=== PATIENT | male | born 1985 | race Caucasian/White ===

== ENCOUNTER 2016-07-10 21:29 | Emergency (ER) | payer SELFPAY ==
--- NOTE | 2016-07-10 21:49 | UC ---
Throat Pain/Nasal Ruy HPI - HPI Summary HPI Summary: L-sided ST starting 2 weeks ago. Was fairly mild until the last 4-5 days when symptoms "really blew up." Painful swallowing with a lump on the L neck. Has also been feeling very chilled lately. Has nasal congestion and cough, but they feel like his normal effects from smoking. - History of Current Complaint Chief Complaint: UCRespiratory Stated Complaint: SORE THROAT Time Seen by Provider: 07/10/16 21:34 Hx Obtained From: Patient Onset/Duration: Gradual Onset, Lasting Weeks Severity: Mild Cough: None Associated Signs & Symptoms: Positive: Nasal Discharge. Negative: Hoarseness, Sinus Discomfort - Allergies/Home Medications Allergies/Adverse Reactions: Allergies Allergy/AdvReac Type Severity Reaction Status Date / Time No Known Allergies Allergy Verified 07/10/16 21:36 Home Medications: Home Medications NK [No Home Medications Reported] 07/10/16 [History Confirmed 07/10/16] PMH/Surg Hx/FS Hx/Imm Hx Endocrine History Of: Denies: Diabetes, Thyroid Disease Cardiovascular History Of: Denies: Cardiac Disorders, Hypertension Respiratory History Of: Reports: Asthma - as a child Denies: COPD GI/ History Of: Denies: Ulcer - Surgical History Surgical History: Yes Surgery Procedure, Year, and Place: fatty tumor removed. CHOLECYSTECTOMY - Family History Known Family History: Positive: Cardiac Disease, Diabetes, Other - cancer - Social History Alcohol Use: Rare Substance Use Type: None Smoking Status (MU): Light Every Day Tobacco Smoker Type: Cigars Amount Used/How Often: 2-3 CIG/DAY Length of Time of Smoking/Using Tobacco: 12 yrs Have You Smoked in the Last Year: Yes When Did the Patient Quit Smoking/Using Tobacco: 3 MO AGO Household Exposure Type: Cigarettes - Immunization History Most Recent Influenza Vaccination: fall 2015 Review of Systems Constitutional: Chills Skin: Negative Eyes: Negative ENT: Sore Throat Respiratory: Negative Cardiovascular: Negative Gastrointestinal: Negative Genitourinary: Negative Motor: Negative Neurovascular: Negative Musculoskeletal: Negative Neurological: Negative Psychological: Negative All Other Systems Reviewed And Are Negative: Yes Physical Exam Triage Information Reviewed: Yes Appearance: Well-Appearing, No Pain Distress, Well-Nourished Vital Signs: Initial Vital Signs Temp 99.4 F 07/10/16 21:32 Pulse 87 07/10/16 21:32 Resp 18 07/10/16 21:32 BP 151/91 07/10/16 21:32 Pulse Ox 98 07/10/16 21:32 Vital Signs Reviewed: Yes Eye Exam: Normal Eyes: Positive: Conjunctiva Clear ENT: Positive: Hearing grossly normal, Pharyngeal erythema, TMs normal. Negative: Nasal drainage Dental Exam: Normal Neck: Positive: Enlarged Nodes @ - L anterior cervical Respiratory Exam: Normal Respiratory: Positive: Chest non-tender, Lungs clear, Normal breath sounds, No respiratory distress, No accessory muscle use Cardiovascular Exam: Normal Cardiovascular: Positive: RRR, No Murmur Musculoskeletal Exam: Normal Musculoskeletal: Positive: Strength Intact, ROM Intact Neurological Exam: Normal Neurological: Positive: Alert Psychological Exam: Normal Skin Exam: Normal Throat Pain/Nasal Course/Dx - Differential Dx/Diagnosis Provider Diagnoses: tonsillitis. elevated blood pressure due to pain Discharge - Discharge Plan Condition: Stable Disposition: HOME Patient Education Materials: Tonsillitis (ED) Referrals: No Primary Care Phys,NOPCP [Primary Care Provider] - Additional Instructions: Your strep test is negative. Labwork pending. If your symptoms do not show improvement within the next week, please return for a recheck.
[2016-07-10 22:18] VITALS: BP 156/92
[2016-07-11 10:24] LABS: EBV Response YES
[2016-07-11 10:37] LABS: Hematocrit 50 % (42-52); Hemoglobin 16.7 g/dl (14.0-18.0); Mean Corpuscular HGB Conc 34 g/dl (31-36); Mean Corpuscular Hemoglobin 30 pg (27-31); Mean Corpuscular Volume 91 fL (80-94); Mean Platelet Volume 9 um3 (7.4-10.4); Red Blood Count 5.48 10^6/ul (4.0-5.4); Red Cell Distribution Width 13 % (10.5-15); White Blood Count 11.9 10^3/ul (3.5-10.8)
[2016-07-11 10:43] LABS: Manual Entry Verification GRE0060; Mono Internal Control QC Line Present
[2016-07-11 11:22] LABS: Albumin 4.8 g/dL (3.2-5.2); BUN/Creatinine Ratio 14.3 (8-20); Calcium 9.8 mg/dL (8.6-10.3); EGFR African American 116.3 (>60); EGFR Non-African American 90.4 (>60); Globulin 2.3 g/dL (2-4); Potassium 4.3 mmol/L (3.5-5.0); Total Bilirubin 0.6 mg/dL (0.2-1.0); Total Protein 7.1 g/dL (6.4-8.9)
[2016-07-12 15:53] LABS: EBV Capsid Ag IgG Ab Positive (Negative); EBV Capsid Ag IgM Ab Negative (Negative)
== END 2016-07-10 22:15 | disposition home or self-care (01) ==
LOC: UCEAST 21:29
DX: J03.90 Acute tonsillitis, unspecified (principal); R03.0 Elevated blood-pressure reading, without diagnosis of hypertension; Z90.49 Acquired absence of other specified parts of digestive tract; F17.210 Nicotine dependence, cigarettes, uncomplicated
CPT/HCPCS: 36415; 80053; 85025; 86308; 86664; 86665; 87651; 99211; G0463

== ENCOUNTER 2017-01-16 10:38 | Emergency (ER) | payer OTHER ==
[2017-01-16 11:01] VITALS: BP 140/77
[2017-01-16] MEDS ORDERED: Ondansetron ODT TAB* 4 MG PO ONE (11:26)
--- NOTE | 2017-01-16 11:38 | UC ---
FLU HPI - HPI Summary HPI Summary: 2 DAYS OF COUGH, CHEST CONGESTION, ST, BODY ACHES. WOKE UP 2 AM LAST NIGHT AND VOMITED, HAS HAD SEVERAL EPISODES OF VOMITING AND DIARRHEA. DENIES FEVER. - History of Current Complaint Chief Complaint: UCGeneralIllness Stated Complaint: COUGH VOMITING Time Seen by Provider: 01/16/17 11:19 Hx Obtained From: Patient Onset/Duration: Gradual Onset, Lasting Days, Still Present Severity Currently: Moderate Severity Initially: Moderate Pain Intensity: 7 Pain Scale Used: 0-10 Numeric Associated Signs & Symptoms: Positive: Myalgia, Cough, Sore Throat, Nasal Congestion, Vomiting, Diarrhea - Allergy/Home Medications Allergies/Adverse Reactions: Allergies Allergy/AdvReac Type Severity Reaction Status Date / Time No Known Allergies Allergy Verified 01/16/17 10:55 Home Medications: Home Medications Mucinex 2 tab PO 01/16/17 [History] PMH/Surg Hx/FS Hx/Imm Hx Respiratory History: Asthma - Surgical History Surgical History: Yes Surgery Procedure, Year, and Place: fatty tumor removed. CHOLECYSTECTOMY - Family History Known Family History: Positive: Cardiac Disease, Hypertension, Diabetes, Other - cancer - Social History Alcohol Use: Rare Substance Use Type: None Smoking Status (MU): Heavy Every Day Tobacco Smoker Type: Cigars Amount Used/How Often: 5-6 CIG/DAY Length of Time of Smoking/Using Tobacco: 12 yrs Have You Smoked in the Last Year: Yes When Did the Patient Quit Smoking/Using Tobacco: 3 MO AGO Household Exposure Type: Cigarettes - Immunization History Most Recent Influenza Vaccination: fall 2015 Review of Systems Constitutional: Fatigue ENT: Sore Throat, Nasal Discharge Respiratory: Cough Cardiovascular: Negative Musculoskeletal: Myalgia All Other Systems Reviewed And Are Negative: Yes Physical Exam Triage Information Reviewed: Yes Appearance: No Pain Distress, Well-Nourished, Ill-Appearing - MILD Vital Signs: Initial Vital Signs Temp 98.7 F 01/16/17 10:56 Pulse 86 01/16/17 10:56 Resp 16 01/16/17 10:56 BP 140/77 01/16/17 10:56 Pulse Ox 100 01/16/17 10:56 Vital Signs Reviewed: Yes Eyes: Positive: Conjunctiva Clear ENT: Positive: Hearing grossly normal, Pharynx normal, TMs normal Neck: Positive: Supple, Nontender, No Lymphadenopathy Respiratory Exam: Normal Cardiovascular Exam: Normal Abdomen Description: Positive: Soft Musculoskeletal: Positive: No Edema Neurological: Positive: Alert Psychological: Positive: Age Appropriate Behavior Skin: Negative: rashes Diagnostics - Laboratory Diagnostic Studies Completed/Ordered: RAPID FLU NEGATIVE Flu Course/Dx - Differential Dx/Diagnosis Provider Diagnoses: ACUTE VIRAL SYNDROME Discharge - Discharge Plan Condition: Stable Disposition: HOME Patient Education Materials: Viral Syndrome (ED) Forms: *Work Release Referrals: No Primary Care Phys,NOPCP [Primary Care Provider] - Additional Instructions: FLU TEST NEGATIVE. YOUR SYMPTOMS ARE LIKELY VIRALLY MEDIATED AND SHOULD RESOLVE ON THEIR OWN WITH TIME. REST, HYDRATE, OTC MEDS NEEDED. SEEK FOLLOW-UP IF YOU ARE NOT IMPROVING OVER THE NEXT 1-2 WEEKS. VIRAL SYNDROME: The physician has diagnosed a viral infection. Viruses not only cause "colds," but can cause many different symptoms including generalized aching, fever, headache, cough, diarrhea, nausea, vomiting, and fatigue. The treatment, for the most part, is simply relief of symptoms. This means that antibiotics are usually not given. Rest, fluids, pain medications and, occasionally, medication for the specific symptoms that are most bothersome will be prescribed. Contact the physician if you develop any new or unusual symptoms such as severe headache, stiff neck, high fever, chest pain, productive cough, or shortness of breath. You should be rechecked if you don't see marked improvement within seven to 10 days. CALL THE NUMBER BELOW FOR ASSISTANCE IN ESTABLISHING WITH A PCP An additional resource available to assist in finding the appropriate physician for your health care needs is the [facility] ([facility]). You may contact them by calling [phone].
== END 2017-01-16 12:32 | disposition home or self-care (01) ==
LOC: UCEAST 10:38
DX: B34.9 Viral infection, unspecified (principal); J45.909 Unspecified asthma, uncomplicated; Z90.49 Acquired absence of other specified parts of digestive tract; F17.210 Nicotine dependence, cigarettes, uncomplicated
CPT/HCPCS: 87502; 99212; A9270-GY; G0463

== ENCOUNTER 2017-05-18 12:32 | Emergency (ER) | payer SELFPAY ==
[2017-05-18 12:53] VITALS: BP 150/102
--- NOTE | 2017-05-18 13:00 | UC ---
FLU HPI - HPI Summary HPI Summary: 31M presents with flu like illness for 3 days. He admits to muscle aches. He admits to nausea, vomiting, and diarrhea. He admits to subjective fevers. He admits to productive cough. He denies any sore throat. He admits to sinus congestion. He denies any chest pain or SOB. He has no medical conditions. He denies any antibiotic usage recently. no one else is sick. he works in a [employer] shop. - History of Current Complaint Chief Complaint: UCGeneralIllness Stated Complaint: VOMITING,CHILLS,COUGH Time Seen by Provider: 05/18/17 12:54 Pain Intensity: 7 - Allergy/Home Medications Allergies/Adverse Reactions: Allergies Allergy/AdvReac Type Severity Reaction Status Date / Time No Known Allergies Allergy Verified 05/18/17 12:53 PMH/Surg Hx/FS Hx/Imm Hx Endocrine History: Other Other Endocrine History: no DM Respiratory History: Other Other Respiratory History: no COPD - Surgical History Surgical History: Yes Surgery Procedure, Year, and Place: fatty tumor removed 2004. CHOLECYSTECTOMY as a child - Family History Known Family History: Positive: Cardiac Disease, Hypertension, Diabetes, Other - cancer - Social History Alcohol Use: Rare Substance Use Type: None Smoking Status (MU): Heavy Every Day Tobacco Smoker Type: Cigars Amount Used/How Often: 5-6 CIG/DAY Length of Time of Smoking/Using Tobacco: 12 yrs Have You Smoked in the Last Year: Yes When Did the Patient Quit Smoking/Using Tobacco: 3 MO AGO Household Exposure Type: Cigarettes - Immunization History Most Recent Influenza Vaccination: fall 2015 Review of Systems Constitutional: Chills, Fatigue Respiratory: Other Gastrointestinal: Abdominal Pain, Vomiting, Diarrhea, Nausea All Other Systems Reviewed And Are Negative: Yes Physical Exam Triage Information Reviewed: Yes Appearance: Well-Appearing Vital Signs: Initial Vital Signs Temp 98.6 F 05/18/17 12:48 Pulse 84 05/18/17 12:48 Resp 18 05/18/17 12:48 BP 150/102 05/18/17 12:48 Pulse Ox 99 05/18/17 12:48 Vital Signs Reviewed: Yes Eyes: Positive: Conjunctiva Clear ENT: Positive: Normal ENT inspection, Pharynx normal, TMs normal Respiratory: Positive: Lungs clear, Normal breath sounds Cardiovascular: Positive: RRR Abdomen Description: Positive: Soft, Other: - mild diffuse tenderness Bowel Sounds: Positive: Present Musculoskeletal Exam: Normal Neurological Exam: Normal Psychological Exam: Normal Skin Exam: Normal Flu Course/Dx - Course Course Of Treatment: 31M presents with flu like illness for 3 days. He admits to muscle aches. He admits to nausea, vomiting, and diarrhea. He admits to subjective fevers. He admits to productive cough. He denies any sore throat. He admits to sinus congestion. He denies any chest pain or SOB. He has no medical conditions. He denies any antibiotic usage recently. no one else is sick. he works in a [employer] shop. on exam lungs CTA. abdomen mild diffuse tenderness. due to being out of range to treat for flu will not test for flu. with symptoms need to pull from work anyways. symptoms likely due to flu so will treat supporatively. gave referral to establish care with primary due to elevated blood pressure. patient understand and agrees with plan. - Differential Dx/Diagnosis Differential Diagnosis/HQI/PQRI: Influenza, Pneumonia, Upper Respiratory Infection Provider Diagnoses: influenza Discharge - Discharge Plan Condition: Good Disposition: HOME Prescriptions: Benzonatate CAP* [Tessalon 100 MG CAP*] 100 mg PO TID #21 cap Ondansetron ODT TAB* [Zofran 4 MG Odt TAB*] 4 mg PO Q6H PRN #20 tab.odt PRN Reason: Nausea Patient Education Materials: Influenza (ED) Forms: *Work Release Referrals: [facility] PHYSICIAN REFERRAL [Outside] Additional Instructions: Take Tylenol and ibuprofen for muscle aches and fever every 6 hours Use Zofran every 6 hours for nausea as needed Take tessalon three times a day for cough Saline rinse can be used multiple times a day for nasal congestion Use humidifier in room or place bowls of warm water around room for cough Try to drink fluids every hour and eat a small snack every 3 hours Establish care with primary, need to follow up as blood pressure was elevated this visit Return to ED if develop any new or worsening symptoms
== END 2017-05-18 13:10 | disposition home or self-care (01) ==
LOC: UCEAST 12:32
DX: J11.1 Influenza due to unidentified influenza virus with other respiratory manifestations (principal); Z87.891 Personal history of nicotine dependence
CPT/HCPCS: 99212; G0463

== ENCOUNTER 2017-09-11 14:59 | Emergency (ER) | payer SELFPAY ==
[2017-09-11 15:10] VITALS: BP 169/102
--- NOTE | 2017-09-11 18:51 | UC ---
Ramírez Agarwal Jade, scribed for Derrick Latham MD on 09/11/17 at 1638 . Abdominal Pain Male HPI - HPI Summary HPI Summary: Pt is a 31 y/o male who [place] [facility] [place]/o intermittent abdominal pain. Pt states he has had bad abdominal pain over his RLQ for several days. The apin is intermittent, and he is sometimes bent over in pain. Last night he felt under the weather so he took some sinus medicine. When he woke up he couldnt breathe because he was so congested. Pt also c/o a scratchy throat, sinus pain, sinus congestion with green mucus, and some diarrhea. He states he normally has a dry cough due to smoking. Eating and drinking both make the abdominal pain worse. Pt denies any bloody or black stool, testicular pain, scrotum pain, or abnormal urination. PSHx cholecystectomy. - History of Current Complaint Chief Complaint: UCAbdominalPain Stated Complaint: ABD PAIN,ST,COUGH,CONGESTION Time Seen by Provider: 09/11/17 16:05 Hx Obtained From: Patient Onset/Duration: Gradual Onset - 3 days ago Timing: Intermittent Episodes Lasting: - About 20 minutes Severity Currently: Moderate Pain Intensity: 3 Pain Scale Used: 0-10 Numeric Location: Discrete At: RLQ Aggravating Factor(s): Food Associated Signs And Symptoms: Positive: Decreased Appetite. Negative: Blood in Stool - Allergies/Home Medications Allergies/Adverse Reactions: Allergies Allergy/AdvReac Type Severity Reaction Status Date / Time No Known Allergies Allergy Verified 09/11/17 15:10 Home Medications: Home Medications Sinus Med* 09/11/17 [History] PMH/Surg Hx/FS Hx/Imm Hx Endocrine History: Other - NEGATIVE: diabetes Other Endocrine History: . Respiratory History: Asthma - Surgical History Surgical History: Yes Surgery Procedure, Year, and Place: fatty tumor removed 2004. CHOLECYSTECTOMY as a child - Family History Known Family History: Positive: Cardiac Disease, Hypertension, Diabetes, Other - cancer, GERD - Social History Alcohol Use: None Substance Use Type: None Smoking Status (MU): Current Every Day Smoker Type: Cigarettes Amount Used/How Often: 1/2 PPD Length of Time of Smoking/Using Tobacco: 12 yrs Have You Smoked in the Last Year: Yes When Did the Patient Quit Smoking/Using Tobacco: 3 MO AGO Household Exposure Type: Cigarettes - Immunization History Most Recent Influenza Vaccination: fall 2015 Review of Systems ENT: Sore Throat, Nasal Discharge - Green mucus, Sinus Congestion, Sinus Pain/ Tenderness Gastrointestinal: Abdominal Pain - RLQ - intermittent, Diarrhea, Other - NEGATIVE: black or bloody stool Genitourinary: Negative All Other Systems Reviewed And Are Negative: Yes Physical Exam - Summary Physical Exam Summary: General: well-appearing, no pain distress Skin: warm, color reflects adequate perfusion, dry Head: normal Eyes: EOMI, MARYANN ENT: Rhinorrhea Neck: supple, nontender Respiratory: CTA, breath sounds present Cardiovascular: RRR Abdomen: soft, mild tenderness over right side of abdomen. No rebound. Bowel: present Musculoskeletal: normal, strength/ROM intact Neurological: sensory/motor intact, A&O x3 Psychological: affect/mood appropriate Triage Information Reviewed: Yes Vital Signs: Initial Vital Signs Temp 98.8 F 09/11/17 15:07 Pulse 91 09/11/17 15:07 Resp 18 09/11/17 15:07 BP 169/102 09/11/17 15:07 Pulse Ox 99 09/11/17 15:07 Vital Signs Reviewed: Yes Abd Pain Male Course/Dx - Course Course Of Treatment: SX TREATMENT FOR URI SX. NO C/O OF ABDOMINAL PAIN IN CLINIC BUT, MILDY TENDER WITHOUT REBOUND ON EXAM. NO FEVER. PAIN INTERMITTENT. APPENDICITIS UNLIKELY BUT, STILL POSSIBLE. I DISCUSSED THIS WITH THE PATIENT AND RECOMMENDED EVALUATION OF THE ABD PAIN IN THE ED. - Differential Dx/Clinical Impression Provider Diagnoses: URI. INTERMITTENT RIGHT SIDED ABDOMINAL PAIN Discharge - Sign-Out/Discharge Documenting (check all that apply): Discharge/Admit/Transfer - Discharge - Discharge Plan Condition: Stable Disposition: HOME Patient Education Materials: Upper Respiratory Infection (ED), Acute Abdominal Pain (ED) Forms: *Work Release Referrals: [facility] PHYSICIAN REFERRAL [Outside] Additional Instructions: GO TO THE EMERGENCY DEPARTMENT FOR FURTHER EVALUATION OF YOUR ABDOMINAL PAIN. TRY OVER THE COUNTER TREATMENT OF YOUR UPPER RESPIRATORY TRACT INFECTION/SINUS CONGESTION SYMPTOMS. FOLLOW UP WITH YOUR DOCTOR IF NOT COMPLETELY IMPROVED. GET RECHECKED FOR ANY WORSENING OF YOUR CONDITION OR QUESTIONS OR CONCERNS. - Billing Disposition and Condition Condition: STABLE Disposition: Home The documentation as recorded by the Ramírez sun Jade accurately reflects the service I personally performed and the decisions made by me, Derrick Latham MD.
== END 2017-09-11 16:35 | disposition home or self-care (01) ==
LOC: UCEAST 14:59
DX: N39.0 Urinary tract infection, site not specified (principal); R10.31 Right lower quadrant pain; R07.0 Pain in throat; R09.81 Nasal congestion; R19.7 Diarrhea, unspecified; J45.909 Unspecified asthma, uncomplicated; F17.210 Nicotine dependence, cigarettes, uncomplicated; Z82.49 Family history of ischemic heart disease and other diseases of the circulatory system; Z83.3 Family history of diabetes mellitus; Z83.79 Family history of other diseases of the digestive system; Z80.9 Family history of malignant neoplasm, unspecified
CPT/HCPCS: 99212; G0463

== ENCOUNTER 2017-10-28 09:27 | Emergency (ER) | payer BC ==
[2017-10-28 09:39] VITALS: BP 143/94
--- NOTE | 2017-10-28 09:59 | UC ---
Throat Pain/Nasal Ruy HPI - HPI Summary HPI Summary: The patient is a 32-year-old male with a less than 24-hour history of sore throat. Had myalgias and has felt feverish. - History of Current Complaint Chief Complaint: UCRespiratory Stated Complaint: SORE THROAT Time Seen by Provider: 10/28/17 09:40 Hx Obtained From: Patient Onset/Duration: Gradual Onset, Lasting Hours Severity: Severe Pain Intensity: 9 Pain Scale Used: 0-10 Numeric Cough: None Associated Signs & Symptoms: Positive: Fever - Epiglottits Risk Factors Epiglottis Risk Factors: Negative - Allergies/Home Medications Allergies/Adverse Reactions: Allergies Allergy/AdvReac Type Severity Reaction Status Date / Time No Known Allergies Allergy Verified 10/28/17 09:39 Home Medications: Home Medications Mv-Mn/C/Glutamin/Lysin/[id number] [Airborne Lozenge] 1 tab PO ONCE PRN 10/28/17 [ History Confirmed 10/28/17] PMH/Surg Hx/FS Hx/Imm Hx Previously Healthy: Yes - Surgical History Surgical History: Yes Surgery Procedure, Year, and Place: fatty tumor removed 2004. CHOLECYSTECTOMY as a child - Family History Known Family History: Positive: Cardiac Disease, Hypertension, Diabetes, Other - cancer, GERD - Social History Alcohol Use: None Substance Use Type: None Smoking Status (MU): Current Every Day Smoker Type: Cigarettes Amount Used/How Often: 5-6 cig/day Length of Time of Smoking/Using Tobacco: 12 yrs Have You Smoked in the Last Year: Yes When Did the Patient Quit Smoking/Using Tobacco: 3 MO AGO Household Exposure Type: Cigarettes - Immunization History Most Recent Influenza Vaccination: fall 2015 Review of Systems Constitutional: Fever Skin: Negative Eyes: Negative ENT: Sore Throat Respiratory: Negative Cardiovascular: Negative Gastrointestinal: Negative Genitourinary: Negative Motor: Negative Neurovascular: Negative Musculoskeletal: Myalgia Neurological: Negative Psychological: Negative Is Patient Immunocompromised?: No All Other Systems Reviewed And Are Negative: Yes Physical Exam Triage Information Reviewed: Yes Appearance: Well-Appearing, No Pain Distress, Well-Nourished Vital Signs: Initial Vital Signs Temp 98.7 F 10/28/17 09:35 Pulse 110 10/28/17 09:35 Resp 18 10/28/17 09:35 BP 143/94 10/28/17 09:35 Pulse Ox 97 10/28/17 09:35 Vital Signs Reviewed: Yes Eyes: Positive: Conjunctiva Clear ENT: Positive: Hearing grossly normal, Pharyngeal erythema, Tonsillar swelling, Tonsillar exudate, Uvula midline Neck: Positive: Supple, Nontender, Enlarged Nodes @ - ant cervical Respiratory: Positive: Lungs clear, Normal breath sounds, No respiratory distress Cardiovascular: Positive: RRR, No Murmur Musculoskeletal: Positive: ROM Intact, No Edema Neurological: Positive: Alert Psychological Exam: Normal Skin Exam: Normal Diagnostics - Laboratory Diagnostic Studies Completed/Ordered: strep (+) Throat Pain/Nasal Course/Dx - Differential Dx/Diagnosis Provider Diagnoses: strep throat Discharge - Sign-Out/Discharge Documenting (check all that apply): Patient Departure - Discharge Plan Condition: Stable Disposition: HOME Prescriptions: Amoxicillin PO (*) [Amoxicillin 875 MG (*)] 875 mg PO BID #20 tab Ibuprofen TAB* [Motrin TAB*] 600 mg PO Q6H PRN #40 tab PRN Reason: Pain Patient Education Materials: Strep Throat (ED) Forms: *Work Release Referrals: No Primary Care Phys,NOPCP [Primary Care Provider] - - Billing Disposition and Condition Condition: STABLE Disposition: Home
== END 2017-10-28 10:03 | disposition home or self-care (01) ==
LOC: UCEAST 09:27
DX: J02.0 Streptococcal pharyngitis (principal); Z82.49 Family history of ischemic heart disease and other diseases of the circulatory system; Z83.3 Family history of diabetes mellitus; Z80.9 Family history of malignant neoplasm, unspecified; Z83.79 Family history of other diseases of the digestive system; F17.210 Nicotine dependence, cigarettes, uncomplicated
CPT/HCPCS: 87651; 99212; G0463

== ENCOUNTER 2017-11-27 17:30 | Emergency (ER) | payer BC, OTHER ==
[2017-11-27 17:45] VITALS: BP 143/100
--- NOTE | 2017-11-27 17:54 | UC ---
Knee Pain HPI - HPI Summary HPI Summary: left knee pain---began today when he made a sideways movement while playing basketball leaving his foot planted firmly - History of Current Complaint Chief Complaint: UCLowerExtremity Stated Complaint: KNEE INJURY WC Time Seen by Provider: 11/27/17 17:48 Hx Obtained From: Patient Onset/Duration: Sudden Onset, Lasting Hours Location Of Injury: left knee Pain Intensity: 9 Pain Scale Used: 0-10 Numeric Character: Aching, Throbbing Aggravating Factor(s): Movement, Weight Bearing Alleviating Factor(s): Rest, Position Associated Signs And Symptoms: Positive: Swelling Able to Bear Weight: Yes - with pain - Allergies/Home Medications Allergies/Adverse Reactions: Allergies Allergy/AdvReac Type Severity Reaction Status Date / Time No Known Allergies Allergy Verified 11/27/17 17:45 PMH/Surg Hx/FS Hx/Imm Hx Previously Healthy: Yes - Surgical History Surgical History: Yes Surgery Procedure, Year, and Place: fatty tumor removed 2004. CHOLECYSTECTOMY as a child - Family History Known Family History: Positive: Cardiac Disease, Hypertension, Diabetes, Other - cancer, GERD - Social History Occupation: Employed Full-time Lives: With Family Alcohol Use: None Substance Use Type: None Smoking Status (MU): Light Every Day Tobacco Smoker Type: Cigarettes Amount Used/How Often: 5-6 cig/day Length of Time of Smoking/Using Tobacco: 12 yrs Have You Smoked in the Last Year: Yes When Did the Patient Quit Smoking/Using Tobacco: 3 MO AGO Household Exposure Type: Cigarettes - Immunization History Most Recent Influenza Vaccination: fall 2015 Review of Systems Constitutional: Negative Skin: Negative Eyes: Negative ENT: Negative Respiratory: Negative Cardiovascular: Negative Gastrointestinal: Negative Genitourinary: Negative Motor: Negative Neurovascular: Negative Musculoskeletal: Arthralgia - left knee Neurological: Negative Psychological: Negative Is Patient Immunocompromised?: No All Other Systems Reviewed And Are Negative: Yes Physical Exam Triage Information Reviewed: Yes Appearance: Well-Appearing, No Pain Distress, Well-Nourished Vital Signs: Initial Vital Signs Temp 98.7 F 11/27/17 17:40 Pulse 97 11/27/17 17:40 Resp 20 11/27/17 17:40 BP 143/100 11/27/17 17:40 Pulse Ox 97 11/27/17 17:40 Vital Signs Reviewed: Yes Eye Exam: Normal Eyes: Positive: Conjunctiva Clear ENT Exam: Normal ENT: Positive: Normal ENT inspection, Hearing grossly normal. Negative: Trismus , Muffled voice, Hoarse voice Dental Exam: Normal Neck exam: Normal Neck: Positive: Supple, Nontender, No Lymphadenopathy Respiratory Exam: Normal Respiratory: Positive: Chest non-tender, No respiratory distress, No accessory muscle use Cardiovascular Exam: Normal Cardiovascular: Positive: RRR, Pulses Normal, Brisk Capillary Refill Musculoskeletal Exam: Normal, Other Musculoskeletal: Positive: ROM Intact - passive, Strength Limited @ - left knee , ROM Limited @ - active limited by pain, Edema @ Neurological Exam: Normal Neurological: Positive: Alert, Muscle Tone Normal Psychological Exam: Normal Skin Exam: Normal Diagnostics - Radiology No standard instances Xray Interpretation: No Acute Changes Radiology Interpretation Completed By: ED Physician, Radiologist - Patient Name : LIZZY MAHMOOD Medical Record# : [id number] Ordering Physician: Meagan Jaimes NP Acct.#: [id number] : 1985 Age: 32 Sex: M Location: [facility] Exam Date: 11/27 ADM Status: REG ER Order Information: KNEE LEFT 4+ VWS Accession Number: [id number] CPT: 05115 INDICATION: Left knee pain after twisting injury the previous day COMPARISON: None TECHNIQUE: 4 view radiograph of the left knee. FINDINGS: The visualized bones are well-corticated and properly aligned. The joint spaces are properly maintained. There is no radiographic evidence of joint effusion. There is no acute fracture, dislocation or other focal bony abnormality. IMPRESSION: Normal knee radiograph as described above. If the patient's symptoms persist, follow-up imaging is recommended. <Electronically signed by Héctor Young MD in OV> 11/27/171801 Dictated By: Héctor Young MD Dictated Date/Time: 11/27/171801 Transcribed Date/Time: 11/27/171801 Copy to: CC:Meagan Jaimes NP; [place] MD; No Primary Care Phys,NOPCP Imaging - [facility] [place] [id number] [place] [id number] ph ([phone]) ph ([phone]) ph ([phone]) This report is only to be considered final once signed by the Provider(s) as displayed in the "<Electronically Signed by >" field (s). Absence of a signature indicates the report is in a draft status and still needs to be finalized. In the event this document was created by someone other than the signing Provider, the individual initiating the document will be listed in the "Entered by:" or "Dictated by:" jaimes. 1 of 1 Knee Pain Course/Dx - Course Course Of Treatment: knee imm., pain med, RICE, follow with orthopedic MD - Differential Dx/Diagnosis Provider Diagnoses: Left knee pain, nicotine dependant Discharge - Sign-Out/Discharge Documenting (check all that apply): Post-Discharge Follow Up All imaging exams completed and their final reports reviewed: Yes - Discharge Plan Condition: Stable Disposition: HOME Prescriptions: Hydrocodone/Acetaminophen [Hydrocodone-Acetamin 5-325 mg] 1 each PO QID PRN #12 tablet MDD 4 PRN Reason: pain Patient Education Materials: Knee Pain (ED), Hypertension (ED) Forms: *Work Release Referrals: [facility] [Outside] - 1 Week (bp recheck ) Andrzej Carbajal MD [Medical Doctor] - 4 Days - Billing Disposition and Condition Condition: STABLE Disposition: Home
--- NOTE | 2017-11-27 18:06 | RAD ---
INDICATION: Left knee pain after twisting injury the previous day COMPARISON: None TECHNIQUE: 4 view radiograph of the left knee. FINDINGS: The visualized bones are well-corticated and properly aligned. The joint spaces are properly maintained. There is no radiographic evidence of joint effusion. There is no acute fracture, dislocation or other focal bony abnormality. IMPRESSION: Normal knee radiograph as described above. If the patient's symptoms persist, follow-up imaging is recommended.
== END 2017-11-27 18:32 | disposition home or self-care (01) ==
LOC: UCEAST 17:30
DX: M25.562 Pain in left knee (principal); F17.210 Nicotine dependence, cigarettes, uncomplicated
CPT/HCPCS: 99212; G0463

== ENCOUNTER 2018-06-04 08:54 | Emergency (ER) | payer BC, OTHER ==
[2018-06-04 10:36] LABS: Influenza A Molecular NEGATIVE (Negative); Influenza B Molecular NEGATIVE (Negative)
[2018-06-04 11:17] VITALS: BP 141/92
--- NOTE | 2018-06-04 11:18 | UC ---
Respiratory Complaint HPI - HPI Summary HPI Summary: 3 DAYS OF COUGH, CONGESTION, FATIGUE. NO FEVER, N/V. - History of Current Complaint Chief Complaint: UCGeneralIllness Stated Complaint: FLU LIKE SYSM Time Seen by Provider: 06/04/18 10:37 Hx Obtained From: Patient Onset/Duration: Gradual Onset, Lasting Days, Still Present Timing: Constant Severity Initially: Moderate Severity Currently: Moderate Pain Intensity: 8 Pain Scale Used: 0-10 Numeric Character: Cough: Nonproductive Aggravating Factors: Nothing Alleviating Factors: Nothing Associated Signs And Symptoms: Positive: URI, Nasal Congestion. Negative: Dyspnea, Fever, Wheezing - Allergies/Home Medications Allergies/Adverse Reactions: Allergies Allergy/AdvReac Type Severity Reaction Status Date / Time No Known Allergies Allergy Verified 06/04/18 09:11 Home Medications: Home Medications NK [No Home Medications Reported] 06/04/18 [History Confirmed 06/04/18] PMH/Surg Hx/FS Hx/Imm Hx Previously Healthy: Yes - Surgical History Surgical History: Yes Surgery Procedure, Year, and Place: fatty tumor removed 2004. CHOLECYSTECTOMY as a child - Family History Known Family History: Positive: Cardiac Disease, Hypertension, Diabetes, Other - cancer, GERD - Social History Alcohol Use: None Substance Use Type: None Smoking Status (MU): Heavy Every Day Tobacco Smoker Type: Cigarettes Amount Used/How Often: 5-6 cig/day Length of Time of Smoking/Using Tobacco: 12 yrs Have You Smoked in the Last Year: Yes When Did the Patient Quit Smoking/Using Tobacco: 3 MO AGO Household Exposure Type: Cigarettes - Immunization History Most Recent Influenza Vaccination: fall 2015 Review of Systems All Other Systems Reviewed And Are Negative: Yes Constitutional: Positive: Fatigue. Negative: Fever ENT: Positive: Nasal Discharge Respiratory: Positive: Cough Cardiovascular: Positive: Negative Gastrointestinal: Positive: Negative Physical Exam Triage Information Reviewed: Yes Appearance: Well-Appearing, No Pain Distress, Well-Nourished Vital Signs: Initial Vital Signs Temp 99 F 06/04/18 09:08 Pulse 100 06/04/18 09:08 Resp 20 06/04/18 09:08 BP 141/94 06/04/18 09:08 Pulse Ox 100 06/04/18 09:08 Laboratory Tests 06/04/18 10:24 Influenza A (Rapid) Negative Influenza B (Rapid) Negative Vital Signs Reviewed: Yes Eyes: Positive: Conjunctiva Clear ENT: Positive: Hearing grossly normal, Pharynx normal, TMs normal Neck: Positive: Supple, Nontender, No Lymphadenopathy Respiratory Exam: Normal Cardiovascular Exam: Normal Abdomen Description: Positive: Soft Musculoskeletal: Positive: No Edema Neurological: Positive: Alert Psychological: Positive: Age Appropriate Behavior Skin: Negative: Rashes Respiratory Course/Dx - Differential Dx/Diagnosis Provider Diagnosis: Acute upper respiratory infection Discharge - Sign-Out/Discharge Documenting (check all that apply): Patient Departure All imaging exams completed and their final reports reviewed: No Studies - Discharge Plan Condition: Stable Disposition: HOME Patient Education Materials: Upper Respiratory Infection (ED) Forms: *Work Release Referrals: [facility] [Outside] - If Needed Additional Instructions: FLU SWAB NEGATIVE. YOUR SYMPTOMS ARE LIKELY VIRALLY MEDIATED AND SHOULD RESOLVE ON THEIR OWN WITH TIME. NO INDICATION FOR ANTIBIOTICS AT PRESENT. REST, HYDRATE , OTC MEDS NEEDED. SEEK FOLLOW-UP IF YOU ARE NOT IMPROVING OVER THE NEXT 1-2 WEEKS. USE OTC AFRIN FOR NASAL CONGESTION. 2 SPRAYS IN EACH NOSTRIL TWICE DAILY NEEDED. DO NOT USE FOR MORE THAN 3-4 DAYS IN A ROW TO PREVENT DEVELOPING REBOUND CONGESTION. CALL THE NUMBER BELOW FOR ASSISTANCE IN ESTABLISHING WITH A PCP An additional resource available to assist in finding the appropriate physician for your health care needs is the [facility] ([facility]). You may contact them by calling [phone]. - Billing Disposition and Condition Condition: STABLE Disposition: Home
== END 2018-06-04 11:16 | disposition home or self-care (01) ==
LOC: UCEAST 08:54
DX: J06.9 Acute upper respiratory infection, unspecified (principal); F17.210 Nicotine dependence, cigarettes, uncomplicated
CPT/HCPCS: 99211; G0463

== ENCOUNTER 2018-07-03 11:53 | Emergency (ER) | payer BC ==
--- NOTE | 2018-07-03 12:08 | UC ---
Lower Extremity/Ankle HPI - HPI Summary HPI Summary: 32 y/o male presents to the urgent care c/o left ankle pain w/ swelling and mild bruise since Thursday06/28/2018. Pt states he has walking and slipped and twisted his left ankle, and all his weight was put into his ankle. Pt was not able to bear weight immediately. The next day, he was limping and thought symptoms were going to get better, but now pain is sharp w/ movement, 8/10 associated w/moderate swelling in the lateral side of left ankle. He has taken Ibuprofen 600mg PO for pain. Last dose taken was last night around 2000pm. Pt denies numbness or tingling sensation, calf pain,SOB, chest pain, abdominal pain , N/V/D. Pt states she has fracture that ankle 2X in the past. - History of Current Complaint Chief Complaint: UCLowerExtremity Stated Complaint: L ANKLE INJURY Time Seen by Provider: 07/03/18 12:06 Hx Obtained From: Patient Onset/Duration: Gradual Onset, Lasting Days - 5 days, Still Present Severity Initially: Severe Severity Currently: Moderate Pain Intensity: 8 Pain Scale Used: 0-10 Numeric Aggravating Factor(s): Standing, Ambulation Alleviating Factor(s): Rest, Elevation, OTC Meds Able to Bear Weight: Yes - Risk Factors Gout Risk Factors: Negative DVT Risk Factors: Negative Septic Arthritis Risk Factor: Negative - Allergies/Home Medications Allergies/Adverse Reactions: Allergies Allergy/AdvReac Type Severity Reaction Status Date / Time No Known Allergies Allergy Verified 07/03/18 12:01 PMH/Surg Hx/FS Hx/Imm Hx Previously Healthy: Yes - Pt denies PMHX - Surgical History Surgical History: Yes Surgery Procedure, Year, and Place: fatty tumor removed 2004. CHOLECYSTECTOMY as a child - Family History Known Family History: Positive: Cardiac Disease, Hypertension, Diabetes, Other - cancer, GERD - Social History Occupation: Employed Full-time Lives: With Family Alcohol Use: Rare Substance Use Type: None Smoking Status (MU): Heavy Every Day Tobacco Smoker Type: Cigarettes Amount Used/How Often: 1ppd Length of Time of Smoking/Using Tobacco: 12 yrs Have You Smoked in the Last Year: Yes When Did the Patient Quit Smoking/Using Tobacco: 3 MO AGO Household Exposure Type: Cigarettes - Immunization History Most Recent Influenza Vaccination: fall 2015 Review of Systems All Other Systems Reviewed And Are Negative: Yes Constitutional: Positive: Negative Skin: Positive: Bruising - lateral malleollus of left ankle s/p injury ENT: Positive: Negative Respiratory: Positive: Negative Cardiovascular: Positive: Negative Gastrointestinal: Positive: Negative Genitourinary: Positive: Negative Motor: Positive: Negative Neurovascular: Positive: Negative Musculoskeletal: Positive: Decreased ROM - left ankle, Other: - left ankle pain s/p fall Neurological: Positive: Negative Psychological: Positive: Negative Is Patient Immunocompromised?: No Physical Exam - Summary Physical Exam Summary: Vital Signs Reviewed: Yes General: well developed, well nourished obese male, sitting in the examining table w/o any apparent distress Eyes: Positive: Conjunctiva Clear - PERRLA, EOMI, ENT: Positive: Normal ENT inspection, Hearing grossly normal, Pharynx normal, TMs normal Neck: Positive: Supple, Nontender, No Lymphadenopathy Respiratory: Positive: Chest non-tender, Lungs clear, Normal breath sounds, No respiratory distress Cardiovascular: Positive: RRR, No Murmur, Pulses Normal, Brisk Capillary Refill Abdomen Description: Positive: Nontender, No Organomegaly, Soft. Negative: CVA Tenderness (R), CVA Tenderness (L) Bowel Sounds: Positive: Present Musculoskeletal: - Ankle: Pt is able to bear weight and ambulate w/ limping. The L ankle is without obvious asymmetry or deformity when compared to the R ankle. Decreased ROM due to pain. Moderate swelling at the lateral malleolus, with tenderness to palpation.Mild bruising observed. Mild Tenderness to palpation over the medial malleolus , no swelling observed. Talar tilt test is negative for ligament laxity to valgus or varus stress. Negative anterior drawer. Peroneal nerve is intact with strong eversion and plantar flexion. Positive sensation over the Rt foot and Rt ankle, positive pulses, capillary refill intact Neurological Exam: Normal Psychological Exam: Normal Skin: warm and dry Triage Information Reviewed: Yes Vital Signs: Initial Vital Signs Temp 97.8 F 07/03/18 11:58 Pulse 92 07/03/18 11:58 Resp 16 07/03/18 11:58 BP 165/108 07/03/18 11:58 Pulse Ox 98 07/03/18 11:58 Lower Extremity Course/Dx - Course Course Of Treatment: 32 y/o male presents to the urgent care c/o left ankle pain w/ swelling and mild bruise since Thursday06/28/2018. Pt states he has walking and slipped and twisted his left ankle, and all his weight was put into his ankle. Pt was not able to bear weight immediately. The next day, he was limping and thought symptoms were going to get better, but now pain is sharp w/ movement, 8/10 associated w/moderate swelling in the lateral side of left ankle. He has taken Ibuprofen 600mg PO for pain. Last dose taken was last night around 2000pm. Pt denies numbness or tingling sensation, calf pain,SOB, chest pain, abdominal pain , N/V/D. Pt states she has fracture that ankle 2X in the past. Hx obtained. LF ankle X-ray ordered, Impression: IMPRESSION: SOFT TISSUE SWELLING OVERLYING THE FIBULAR MALLEOLUS WITHOUT RADIOGRAPHICALLY APPARENT FRACTURE OR DISLOCATION as per radiologist. Pt most likely with a LF ankle Sprain. Pt immobilized with gel ankle splint to , given crutches to avoid weight bearing, Rx Ibuprofen PO to decrease swelling and pain. First dose given at the clinic today by the nurse. Pt advised RICE, take Ibuprofen PO for pain and to f/u with PCP on orthopedic DR Joy or Sports Medicine in 1 week if not improvement of symptoms for further treatment. Pt's BP is elevated today advised to decrease salt in diet, monitor BP and f/u with PCP for further management. Pt educated on HTN. D/C instructions explained. Pt understood and agreed and left the clinic ambulating w/ the help of crutches. - Differential Dx/Diagnosis Differential Diagnosis/HQI/PQRI: Arthritis, Contusion, Dislocation, Fracture ( Closed), Gout, Sprain, Tendonitis Provider Diagnosis: Injury of ankle and foot, Left ankle sprain, Elevated BP without diagnosis of hypertension Discharge - Sign-Out/Discharge Documenting (check all that apply): Patient Departure - D/C home All imaging exams completed and their final reports reviewed: Yes - Discharge Plan Condition: Stable Disposition: HOME Prescriptions: Ibuprofen TAB* [Motrin TAB* 800 MG] 800 mg PO Q6H PRN #30 tab PRN Reason: Pain Patient Education Materials: Ankle Sprain (ED), Low-Sodium Diet (ED) Forms: *Work Release Referrals: [facility] [place] [facility] [Outside] - 3 Days Kenny Joy MD [Medical Doctor] - 1 Week [facility] [Provider Group] - 1 Week Additional Instructions: 1-Please take Ibuprofen PO q8hrs after meals as directed to alleviate pain and swelling. 2-Please apply ice, keep your ankle immobilized with the splint. Avoid weight bearing using the crutches. Elevate your ankle 3- Please f/u with Orthopedic DR Joy or Sports Medicine in 1 week if not improvement of symptoms for further evaluation and treatment. 4-Your BP is elevated today. Please decrease salt in your diet, monitor BP and if it continues to be elevated please f/u with your PCP for further management since you may be developing HTN. If you develop chest pain, dizziness, visual disturbances, SOB, or severe BEE please go immediately to the ER for further management. - Billing Disposition and Condition Condition: STABLE Disposition: Home
[2018-07-03] MEDS ORDERED: Ibuprofen TAB* 400 MG PO ONE (12:24)
[2018-07-03 13:04] VITALS: BP 140/88
== END 2018-07-03 13:05 | disposition home or self-care (01) ==
LOC: UCEAST 11:53
DX: S93.402A Sprain of unspecified ligament of left ankle, initial encounter (principal); F17.210 Nicotine dependence, cigarettes, uncomplicated; R03.0 Elevated blood-pressure reading, without diagnosis of hypertension; W01.0XXA Fall on same level from slipping, tripping and stumbling without subsequent striking against object, initial encounter; X50.1XXA Overexertion from prolonged static or awkward postures, initial encounter; Y93.01 Activity, walking, marching and hiking; Y92.9 Unspecified place or not applicable
CPT/HCPCS: 99213; A9270-GY; G0463

== ENCOUNTER 2018-07-15 11:14 | Emergency (ER) | payer BC ==
[2018-07-15] MEDS ORDERED: Ondansetron ODT TAB* 4 MG PO ONE (11:52)
[2018-07-15 12:11] LABS: Influenza A Molecular NEGATIVE (Negative); Influenza B Molecular NEGATIVE (Negative)
--- NOTE | 2018-07-15 12:17 | UC ---
UC General HPI - HPI Summary HPI Summary: 32 yo gentleman c/o feeling bad for the past one week, started with sinus congestion / pressure. Took otc cold medications, sx improved. However, a couple days ago, c/o symptoms returned, much worse. + sore throat. + n/v. No diarrhea. No melena. Po liquids ok, but not food (n/v). No rash. + cough. - History of Current Complaint Chief Complaint: UCGeneralIllness Stated Complaint: VOMITING SORE THROAT RESP ISSUE Time Seen by Provider: 07/15/18 11:52 Hx Obtained From: Patient Pain Intensity: 9 - Allergy/Home Medications Allergies/Adverse Reactions: Allergies Allergy/AdvReac Type Severity Reaction Status Date / Time No Known Allergies Allergy Verified 07/03/18 12:01 Home Medications: Home Medications Guaifenesin/Dextromethorphan [Tussin Dm Liquid] 118 ml PO 07/15/18 [History] guaiFENesin [Mucinex] 07/15/18 [History] PMH/Surg Hx/FS Hx/Imm Hx Previously Healthy: Yes - Surgical History Surgical History: Yes Surgery Procedure, Year, and Place: fatty tumor removed 2004. CHOLECYSTECTOMY as a child - Family History Known Family History: Positive: Cardiac Disease, Hypertension, Diabetes, Other - cancer, GERD - Social History Alcohol Use: Rare Substance Use Type: None Smoking Status (MU): Heavy Every Day Tobacco Smoker Type: Cigarettes Amount Used/How Often: 1ppd Length of Time of Smoking/Using Tobacco: 12 yrs Have You Smoked in the Last Year: Yes When Did the Patient Quit Smoking/Using Tobacco: 3 MO AGO Household Exposure Type: Cigarettes - Immunization History Most Recent Influenza Vaccination: fall 2015 Review of Systems All Other Systems Reviewed And Are Negative: Yes Constitutional: Positive: Fatigue Skin: Positive: Negative Eyes: Positive: Negative ENT: Positive: Other - see hpi Respiratory: Positive: Cough, Other - see hpi Cardiovascular: Positive: Negative Gastrointestinal: Positive: Other Genitourinary: Positive: Negative Motor: Positive: Negative Neurovascular: Positive: Negative Musculoskeletal: Positive: Negative Neurological: Positive: Negative Psychological: Positive: Negative Is Patient Immunocompromised?: No Physical Exam Triage Information Reviewed: Yes Appearance: Well-Nourished - looks tired, but nad Vital Signs: Initial Vital Signs Temp 99.4 F 07/15/18 11:41 Pulse 112 07/15/18 11:41 Resp 22 07/15/18 11:41 BP 129/93 07/15/18 11:41 Pulse Ox 99 07/15/18 11:41 Vital Signs Reviewed: Yes Eye Exam: Normal ENT: Positive: Pharyngeal erythema - uvula midline. tonsils enlarged. No exudate appreciated., Nasal congestion, TM dull Neck exam: Normal Neck: Positive: Supple, Nontender, Enlarged Nodes @ Respiratory Exam: Other - BS equal + rhonchorus cough, + exp wheeze. Respiratory: Positive: No respiratory distress, No accessory muscle use Cardiovascular Exam: Normal Cardiovascular: Positive: RRR, Pulses Normal, Brisk Capillary Refill Abdominal Exam: Normal Abdomen Description: Positive: Nontender Bowel Sounds: Positive: Present Musculoskeletal Exam: Normal - gait steady Neurological Exam: Normal - grossly nonfocal Psychological Exam: Normal - conversing easily and appropriately Course/Dx - Course Course Of Treatment: + strep rapid Neg influenza CXR nad. Zofran x 1 - good Reviewed coa / tx plan. Stop smoking if at all possible. Questions as posed answered to the best of my ability. - Diagnoses Provider Diagnosis: Strep tonsillitis, Nausea & vomiting, Bronchitis Discharge - Sign-Out/Discharge Documenting (check all that apply): Patient Departure All imaging exams completed and their final reports reviewed: Yes - Discharge Plan Condition: Stable Disposition: HOME Prescriptions: Albuterol HFA INHALER* [Ventolin HFA Inhaler*] 1 - 2 puff INH Q4H PRN #1 mdi PRN Reason: Wheezing Amoxicillin/Clavulanate TAB* [Augmentin TAB 875*] 875 mg PO BID #20 tab Benzonatate CAP* [Tessalon 100 MG CAP*] 100 mg PO TID PRN #30 cap PRN Reason: Cough Ondansetron ODT TAB* [Zofran 4 MG Odt TAB*] 4 mg PO Q6H PRN #15 tab.odt PRN Reason: Vomiting Patient Education Materials: Strep Throat (ED), Acute Bronchitis (ED), Acute Nausea and Vomiting (ED), Bronchospasm (ED) Forms: *Work Release Referrals: [facility] [place] [facility] [Outside] No Primary Care Phys,NOPCP [Primary Care Provider] - Additional Instructions: Drink plenty of fluids. Please go to the Emergency Department for worse or new problems. - Billing Disposition and Condition Condition: STABLE Disposition: Home
[2018-07-15 13:50] VITALS: BP 125/76
== END 2018-07-15 13:40 | disposition home or self-care (01) ==
LOC: UCEAST 11:14
DX: J03.00 Acute streptococcal tonsillitis, unspecified (principal); R11.2 Nausea with vomiting, unspecified; J40 Bronchitis, not specified as acute or chronic; F17.210 Nicotine dependence, cigarettes, uncomplicated
CPT/HCPCS: 71046; 87651; 99212; A9270-GY; G0463

== ENCOUNTER 2018-12-13 09:54 | Emergency (ER) | payer BC ==
[2018-12-13 10:01] VITALS: BP 146/94
--- NOTE | 2018-12-13 10:18 | UC ---
Throat Pain/Nasal Ruy HPI - HPI Summary HPI Summary: 33 yo smoker, with 10+ day history of productive cough, wheeze, malaise, headache and shortness of breath. No fever. Has continued to work. Remote hx of asthma. - History of Current Complaint Chief Complaint: UCRespiratory Stated Complaint: COUGH Time Seen by Provider: 12/13/18 10:07 Hx Obtained From: Patient Onset/Duration: Gradual Onset, Lasting Days - 10 Severity: Moderate Pain Intensity: 7 Cough: Sputum Appears - green Associated Signs & Symptoms: Positive: Wheezing, Hoarseness, Sinus Discomfort. Negative: Dysphagia, Fever, Vomiting - Epiglottits Risk Factors Epiglottis Risk Factors: Negative - Allergies/Home Medications Allergies/Adverse Reactions: Allergies Allergy/AdvReac Type Severity Reaction Status Date / Time No Known Allergies Allergy Verified 12/13/18 10:01 PMH/Surg Hx/FS Hx/Imm Hx - Additional Past Medical History Additional PMH: has been monitoring blood prssures, aware of elevation. Previously Healthy: Yes Respiratory History: Asthma - childhood, Other - smoking dependent - Surgical History Surgical History: Yes Surgery Procedure, Year, and Place: fatty tumor removed 2004. CHOLECYSTECTOMY as a child - Family History Known Family History: Positive: Cardiac Disease, Hypertension, Diabetes, Respiratory Disease - GM of COPD, Other - cancer, GERD - Social History Occupation: Employed Full-time Lives: With Family Alcohol Use: Rare Substance Use Type: None Smoking Status (MU): Heavy Every Day Tobacco Smoker Type: Cigarettes Amount Used/How Often: 1ppd Length of Time of Smoking/Using Tobacco: 12 yrs Have You Smoked in the Last Year: Yes When Did the Patient Quit Smoking/Using Tobacco: 3 MO AGO Household Exposure Type: Cigarettes - Immunization History Most Recent Influenza Vaccination: fall 2015 Review of Systems All Other Systems Reviewed And Are Negative: Yes Constitutional: Positive: Fatigue, Other - has been losing weight and limiting sodium in effort to decrease risk of htn ENT: Positive: Ear Ache, Nasal Discharge, Sinus Congestion Respiratory: Positive: Shortness Of Breath, Cough Motor: Positive: Negative Neurovascular: Positive: Negative Musculoskeletal: Positive: Negative Neurological: Positive: Headache Psychological: Positive: Negative Physical Exam Triage Information Reviewed: Yes Appearance: Ill-Appearing - looks mildly unwell, Pain Distress - mild Vital Signs: Initial Vital Signs Temp 98.8 F 12/13/18 09:57 Pulse 100 12/13/18 09:57 Resp 20 12/13/18 09:57 BP 146/94 12/13/18 09:57 Pulse Ox 100 12/13/18 09:57 ENT: Positive: Pharyngeal erythema, TM dull - bilateral, TM red - left side Dental Exam: Normal Neck: Positive: Supple, Nontender, No Lymphadenopathy Respiratory: Positive: Decreased breath sounds, Rhonchi, Wheezing - late expiration Cardiovascular: Positive: RRR, No Murmur Musculoskeletal Exam: Normal Musculoskeletal: Positive: Strength Intact Neurological: Positive: Alert Psychological Exam: Normal Skin Exam: Normal Throat Pain/Nasal Course/Dx - Course Course Of Treatment: augmentin for treatment of bronchitis/sinusitis albuterol as needed for wheeze. - Differential Dx/Diagnosis Differential Diagnosis/HQI/PQRI: Laryngitis, Pharyngitis, Sinusitis, Tonsillitis , URI, Other - bronchitis Provider Diagnosis: Bronchitis Discharge ED - Sign-Out/Discharge Documenting (check all that apply): Patient Departure All imaging exams completed and their final reports reviewed: No Studies - Discharge Plan Condition: Stable Disposition: HOME Prescriptions: Albuterol HFA INHALER* [Ventolin HFA Inhaler*] 2 puff INH Q6H PRN #1 mdi PRN Reason: Wheezing Amoxicillin/Clavulanate TAB* [Augmentin TAB 875*] 875 mg PO BID #14 tab Inhaler, Assist Devices [Aerochamber Mv] 1 each MC QID #1 spacer Patient Education Materials: Acute Bronchitis (ED) Referrals: No Primary Care Phys,NOPCP [Primary Care Provider] - Additional Instructions: Your blood pressure was elevated today to 146/94, possibly secondary to decongestants and poor sleep. Use augment for treatment of bronchitis and sinus infection. Follow up if you do not improve or develop increasing fever or shortness of breath. use albuterol to help with wheeze and cough. The use of an aerochamber improves delivery of the medication. - Billing Disposition and Condition Condition: STABLE Disposition: Home
== END 2018-12-13 10:35 | disposition home or self-care (01) ==
LOC: UCEAST 09:54
DX: J40 Bronchitis, not specified as acute or chronic (principal); F17.210 Nicotine dependence, cigarettes, uncomplicated
CPT/HCPCS: 99212; G0463

== ENCOUNTER 2019-05-05 16:27 | Emergency (ER) | payer SELFPAY ==
--- OUTSIDE RECORDS SUMMARY | 2019-05-05 16:32 | XMS REPORT ---
:1985 Author Organization [facility] Care Team Providers Name Role Phone Unavailable Unavailable Unavailable Problems This patient has no known problems. Allergies, Adverse Reactions, Alerts Allergy Allergy Status Severity Reaction(s) Onset Inactive Treating Comments Name Type Date Date Clinician Unknown None Active Unknown None Unknown No Known Allergies For This Patient Medications Ordered Filled Start Stop Current Ordering Indication Dosage Frequency Signature Comments Components Medication Medication Date Date Medication? Clinician (SIG) Name Name No Known No Known No None None None Medications Medications For This For This Patient Patient Procedures This patient has no known procedures. Results This patient has no known results.
--- OUTSIDE RECORDS SUMMARY | 2019-05-05 16:32 | XMS REPORT ---
:1985 Author Organization [facility] Care Team Providers Name Role Phone Unavailable [...]
--- OUTSIDE RECORDS SUMMARY | 2019-05-05 16:32 | XMS REPORT ---
:1985 Author Organization [facility] Care Team Providers Name Role Phone Unavailable [...]
--- OUTSIDE RECORDS SUMMARY | 2019-05-05 16:32 | XMS REPORT ---
:1985 Author Organization [facility] Care Team Providers Name Role Phone Unavailable [...]
--- OUTSIDE RECORDS SUMMARY | 2019-05-05 16:32 | XMS REPORT ---
:1985 Author Organization [facility] Care Team Providers Name Role Phone Unavailable [...]
--- OUTSIDE RECORDS SUMMARY | 2019-05-05 16:32 | XMS REPORT ---
:1985 Author Organization [facility] Care Team Providers Name Role Phone Unavailable [...]
--- OUTSIDE RECORDS SUMMARY | 2019-05-05 16:32 | XMS REPORT ---
:1985 Author Organization [facility] Care Team Providers Name Role Phone Unavailable [...]
--- OUTSIDE RECORDS SUMMARY | 2019-05-05 16:32 | XMS REPORT ---
:1985 Author Organization [facility] Care Team Providers Name Role Phone Unavailable [...]
--- OUTSIDE RECORDS SUMMARY | 2019-05-05 16:32 | XMS REPORT ---
:1985 Author Organization [facility] Care Team Providers Name Role Phone Unavailable [...]
--- OUTSIDE RECORDS SUMMARY | 2019-05-05 16:32 | XMS REPORT ---
:1985 Author Organization [facility] Care Team Providers Name Role Phone Unavailable [...]
--- OUTSIDE RECORDS SUMMARY | 2019-05-05 16:32 | XMS REPORT ---
:1985 Author Organization [facility] Care Team Providers Name Role Phone Unavailable [...]
--- OUTSIDE RECORDS SUMMARY | 2019-05-05 16:33 | XMS REPORT ---
:1985 Author Organization [facility] Care Team Providers Name Role Phone Unavailable [...]
--- OUTSIDE RECORDS SUMMARY | 2019-05-05 16:33 | XMS REPORT | Continuity of Care Document ---
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 Problems Description No Information Available Social History Type Date Description Comments Sex Unknown ETOH Use Denies alcohol use Tobacco Use Start: Unknown Light tobacco smoker (10 or fewer cigarettes/day) Recreational Drug Use Denies Drug Use Smoking Status Reviewed: 04/21/19 Light tobacco smoker (10 or fewer cigarettes/day) Exercise Type/Frequency Exercises regularly Allergies, Adverse Reactions, Alerts Description No Known Drug Allergies Medications Active Medications SIG Qnty Indications Ordering Provider Date Ibuprofen one tablet by Unknown 600mg Tablets mouth q6 as needed pain Rolaids 2-3 tabs by mouth Unknown 550-110mg as needed Chewtabs History Medications Knee Scooter For Left Ankle S82.65xA Rajeev Chua MD 01/24/2019 - 10/2018 Fracture Immunizations Description No Information Available Vital Signs Date Vital Result Comment 04/21/2019 10:31am Height 76 inches 6'4" Heart Rate 99 /min BP Systolic Sitting 140 mmHg BP Diastolic Sitting 96 mmHg Respiratory Rate 16 /min Pain Level 4 O2 % BldC Oximetry 98 % 03/28/2019 11:05am Height 76 inches 6'4" Weight 270.00 lb Heart Rate 76 /min Respiratory Rate 16 /min Body Temperature 98.6 F Pain Level 0 at rest O2 % BldC Oximetry 97 % BMI (Body Mass Index) 32.9 kg/m2 Results Description No Information Available Procedures Date Code Description Status 02/14/2019 40343 Rad Exam; Ankle Comp Completed Medical Devices Description No Information Available Encounters Type Date Location Provider Dx Diagnosis Office Visit 03/28/2019 [facility] Rajeev Chua, S82.65xD Nondisp fx of 11:15a at [place] lateral malleolus of l fibula, 7thD Office Visit 03/07/2019 [facility] Rajeev Chua, S82.65xD Nondisp fx of 11:00a at [place] lateral malleolus of l fibula, 7thD Office Visit 02/14/2019 [facility] Rajeev Chua, S82.65xD Nondisp fx of 11:00a at [place] lateral malleolus of l fibula, 7thD Office Visit 01/24/2019 [facility] Rajeev Chua, S82.65xA Nondisp fx of 1:00p at [place] lateral malleolus of left fibula, init Assessments Date Code Description Provider 04/21/2019 S82.65xD Nondisplaced fracture of lateral malleolus of Rajeev Chua MD left fibula, subsequent encounter for closed fracture with routine healing 04/21/2019 M76.72 Peroneal tendinitis, left leg Rajeev Chua MD 03/28/2019 S82.65xD Nondisplaced fracture of lateral malleolus of Rajeev Chua MD left fibula, subsequent encounter for closed fracture with routine healing 03/07/2019 S82.65xD Nondisplaced fracture of lateral malleolus of Rajeev Chua MD left fibula, subsequent encounter for closed fracture with routine healing 02/14/2019 S82.65xD Nondisplaced fracture of lateral malleolus of Rajeev Chua MD left fibula, subsequent encounter for closed fracture with routine healing 01/24/2019 S82.65xA Nondisplaced fracture of lateral malleolus of Rajeev Chua MD left fibula, initial encounter for closed fracture Plan of Treatment 04/21/2019 - GELACIO [id number] Nondisplaced fracture of lateral malleolus of left fibula, subsequent encounter for closed fracture with routine healingNew Xrays:MRI Ankle Left W/O, Ordered: 04/21/19New Therapy:Physical TherapyFollow up:Follow up: after testing is [id number] Peroneal tendinitis, left legNew Therapy:Physical Therapy Functional Status Description No Information Available Mental Status Description No Information Available Referrals Description No Information Available
--- OUTSIDE RECORDS SUMMARY | 2019-05-05 16:33 | XMS REPORT ---
:1985 Author Organization [facility] Care Team Providers Name Role Phone Unavailable [...]
--- OUTSIDE RECORDS SUMMARY | 2019-05-05 16:33 | XMS REPORT ---
:1985 Author Organization [facility] Care Team Providers Name Role Phone Unavailable [...]
--- OUTSIDE RECORDS SUMMARY | 2019-05-05 16:33 | XMS REPORT ---
:1985 Author Organization [facility] Care Team Providers Name Role Phone Unavailable [...]
--- OUTSIDE RECORDS SUMMARY | 2019-05-05 16:33 | XMS REPORT ---
:1985 Author Organization [facility] Care Team Providers Name Role Phone Unavailable [...]
--- OUTSIDE RECORDS SUMMARY | 2019-05-05 16:33 | XMS REPORT ---
:1985 Author Organization [facility] Care Team Providers Name Role Phone Unavailable [...]
--- OUTSIDE RECORDS SUMMARY | 2019-05-05 16:33 | XMS REPORT ---
:1985 Author Organization [facility] Care Team Providers Name Role Phone Unavailable [...]
--- OUTSIDE RECORDS SUMMARY | 2019-05-05 16:33 | XMS REPORT ---
:1985 Author Organization [facility] Care Team Providers Name Role Phone Unavailable [...]
[2019-05-05 16:55] VITALS: BP 153/95
[2019-05-05 17:18] LABS: Influenza B Molecular POSITIVE (Negative)
--- NOTE | 2019-05-05 17:30 | UC ---
Respiratory Complaint HPI - HPI Summary HPI Summary: The patient is a 33-year-old male with a less than 48 hour history of cough congestion headache and myalgias. He denies any nausea vomiting or diarrhea. He does have a history of asthma and bronchitis. - History of Current Complaint Chief Complaint: UCRespiratory Stated Complaint: RESP COMPLAINT Time Seen by Provider: 05/05/19 17:21 Hx Obtained From: Patient Onset/Duration: Gradual Onset, Lasting Hours Timing: Constant Severity Initially: Mild Severity Currently: Moderate Pain Intensity: 4 Pain Scale Used: 0-10 Numeric Character: Cough: Nonproductive Aggravating Factors: Nothing Alleviating Factors: Nothing Associated Signs And Symptoms: Positive: Fever, Chills, URI, Nasal Congestion, Hoarseness, Sinus Discomfort - Allergies/Home Medications Allergies/Adverse Reactions: Allergies Allergy/AdvReac Type Severity Reaction Status Date / Time No Known Allergies Allergy Verified 05/05/19 16:53 Home Medications: Home Medications Chlorphenir/Phenyleph/Aspirin [Shireen-[place] Plus Cold 2-7.8-325 mg] 1 tab PO Q12H PRN 05/05/19 [History Confirmed 05/05/19] PMH/Surg Hx/FS Hx/Imm Hx Previously Healthy: Yes Respiratory History: Asthma, Bronchitis - Surgical History Surgical History: Yes Surgery Procedure, Year, and Place: fatty tumor removed 2004. CHOLECYSTECTOMY as a child - Family History Known Family History: Positive: Cardiac Disease, Hypertension, Diabetes, Respiratory Disease - GM of COPD, Other - cancer, GERD - Social History Alcohol Use: Rare Substance Use Type: None Smoking Status (MU): Heavy Every Day Tobacco Smoker Type: Cigarettes Amount Used/How Often: 1ppd Length of Time of Smoking/Using Tobacco: 12 yrs Have You Smoked in the Last Year: Yes When Did the Patient Quit Smoking/Using Tobacco: 3 MO AGO Household Exposure Type: Cigarettes - Immunization History Most Recent Influenza Vaccination: fall 2015 Review of Systems All Other Systems Reviewed And Are Negative: Yes Constitutional: Positive: Fever, Chills, Fatigue Skin: Positive: Negative Eyes: Positive: Negative ENT: Positive: Sore Throat, Nasal Discharge, Sinus Congestion, Sinus Pain/ Tenderness Respiratory: Positive: Cough Cardiovascular: Positive: Negative Gastrointestinal: Positive: Negative Genitourinary: Positive: Negative Motor: Positive: Negative Neurovascular: Positive: Negative Musculoskeletal: Positive: Myalgia Neurological: Positive: Negative Psychological: Positive: Negative Physical Exam Triage Information Reviewed: Yes Appearance: Well-Appearing, No Pain Distress, Well-Nourished Vital Signs: Initial Vital Signs Temp 98.7 F 05/05/19 16:54 Pulse 83 05/05/19 16:54 Resp 18 05/05/19 16:54 BP 153/95 05/05/19 16:54 Pulse Ox 98 05/05/19 16:54 Vital Signs Reviewed: Yes Eyes: Positive: Conjunctiva Clear ENT: Positive: Hearing grossly normal, Pharynx normal, Uvula midline. Negative : Nasal congestion, Nasal drainage, Tonsillar swelling, Tonsillar exudate, Trismus, Hoarse voice, Sinus tenderness Dental Exam: Normal Neck: Positive: Supple, Nontender Respiratory: Positive: Lungs clear, Normal breath sounds, No respiratory distress, No accessory muscle use Cardiovascular: Positive: RRR, No Murmur Abdominal Exam: Normal Bowel Sounds: Positive: Present Musculoskeletal Exam: Normal Neurological: Positive: Alert Psychological Exam: Normal Skin Exam: Normal Diagnostics - Laboratory Lab Results: influenza B+ strep - Respiratory Course/Dx - Differential Dx/Diagnosis Provider Diagnosis: Influenza B Discharge ED - Sign-Out/Discharge Documenting (check all that apply): Patient Departure All imaging exams completed and their final reports reviewed: No Studies - Discharge Plan Condition: Stable Disposition: HOME Prescriptions: Oseltamivir CAP* [Tamiflu CAP*] 75 mg PO BID #10 cap Patient Education Materials: Influenza (ED) Referrals: No Primary Care Phys,NOPCP [Primary Care Provider] - - Billing Disposition and Condition Condition: STABLE Disposition: Home
== END 2019-05-05 17:45 | disposition home or self-care (01) ==
LOC: UCEAST 16:27
DX: J10.1 Influenza due to other identified influenza virus with other respiratory manifestations (principal); J45.909 Unspecified asthma, uncomplicated; F17.210 Nicotine dependence, cigarettes, uncomplicated
CPT/HCPCS: 87651; 99212; G0463